=== PATIENT | female | born 1985 | race Caucasian/White ===

== ENCOUNTER → 2018-05-21 | Outpatient (CLI) | payer BC | LOC: FIMAGING 12:07 | PROVIDERS: ATTEND Advanced Practice Midwife | DX: Z34.02 Encounter for supervision of normal first pregnancy, second trimester (principal); Z3A.19 19 weeks gestation of pregnancy ==

== ENCOUNTER 2018-09-30 18:29 | Observation (INO) | payer BC ==
[2018-09-30] MEDS: ACETAMINOPHEN 500 MG TAB PO PRN (19:01)
[2018-09-30 19:02] LABS: PLATELET COUNT 187 10^3/uL (150-400)
[2018-09-30] MEDS ORDERED: SIMETHICONE 80 MG TAB CHEW PO PRN (20:16)
[2018-09-30] MEDS ORDERED: HYDROCORTISONE 0.5% CREAM TP PRN (20:16)
[2018-09-30] MEDS ORDERED: DOCUSATE SODIUM 100 MG CAP PO PRN (20:16)
[2018-09-30] MEDS: FERROUS SULFATE 325 MG TAB PO SCH (21:08)
[2018-09-30] MEDS: IBUPROFEN 600 MG TAB PO PRN (21:08)
--- NOTE | 2018-09-30 21:12 | GHP ---
DATE OF ADMISSION: 09/30/2018 ADMITTING DIAGNOSES: 1. Status post vaginal delivery with delayed hemorrhage at [facility]. 2. Symptomatic anemia. HISTORY OF PRESENT ILLNESS: Patient is a 33-year-old 1, now P1 who was at 38 weeks and 3 days, who presented to [facility] in active labor around 0730 this morning. Pt then pushed for 3 hours, and had a spontaneous vaginal delivery at 1449 today to a viable male infant with delivery of placenta at 1505. The patient had a second-degree laceration that was repaired without difficulty by CNM as well as a high sulcal tear which was difficulty to repair and took two CNMs for the repair. EBL in total was 1300 cc, and noted to be delayed. The patient did have symptoms of being pale, dizzy with hypotension, and tachycardia. Heart rate as high as 115. The patient is being transferred from [facility] to Labor and Delivery for observation of vaginal bleeding, as well as symptoms of anemia. The patient had good care at the [facility]. mostly uncomplicated. She did develop anemia at 27 weeks, is on iron. There was an estimated weight in the 98th percentile at 20 weeks, with no followup ultrasound. The patient declined both Tdap and flu vaccine. GBS culture was negative. PAST OB HISTORY: This was the patient's first . PAST [employer] HISTORY: Age of menarche 12 . Cycles are regular every 28 days for 5- 7 days. Patient denies a history of abnormal Pap smears, or any exposure to STDs. PAST MEDICAL HISTORY: Unremarkable. PAST SURGICAL HISTORY: None. MEDICATIONS: vitamin and Iron. ALLERGIES: Guaifenesin. SOCIAL HISTORY: Patient is and lives with her . She denies any alcohol, tobacco, or illicit drug use currently. FAMILY HISTORY: Maternal grandfather, multiple myeloma. Father, heart disease. REVIEW OF SYSTEMS: 10-point review of systems is negative. Pertinent positives noted in HPI. LABS: labs: Patient is O positive, antibody negative. H and H first- trimester 41.2 and 13.7, platelets 268. RPR nonreactive. HIV nonreactive. Rubella immune. Hepatitis B surface antigen negative. Pap smear: Chlamydia, gonorrhea cultures negative. UA and urine culture negative. Genetic screen, and carrier screen negative. One-hour Glucola 85. Repeat and H and H 3rd trimester, 11 and 33.5, platelets 173. GBS culture was negative. PHYSICAL EXAMINATION: VITAL SIGNS: On admission, vital signs are stable. Patient is afebrile at 37.6, heart rate 94, did get as high as 105, respirations 18, blood pressure 107/67. GENERAL: The patient is a well- nourished, well-developed female. Alert and oriented x3. No apparent distress. NEURO: Grossly intact. SKIN: Warm. There is pallor noted. No rash. CARDIOVASCULAR: Regular rate and rhythm. LUNGS: Clear to auscultation bilaterally. ABDOMEN: Fundus firm below umbilicus, soft, nontender. PELVIC: Minimal lochia noted at this time. Second degree perineal lac and sulcal tear repaired well with no bleeding. EXTREMITIES: Normal to inspection without calf tenderness or edema. ASSESSMENT: Patient is a 33-year-old 1, now para 1, status post a spontaneous vaginal delivery complicated by hemorrhage with symptomatic anemia. PLAN: 1. Admit to Labor and Delivery for observation. 2. Will check HCT now and again in the morning. 3. IV fluids. 4. Will start iron and colace. 5. Continue to monitor vital signs and symptoms; if patient becomes too symptomatic, t/c blood transfusion. 6. If patient continues to have bleeding, will consider vaginal packing. /[id number]/MODL MTDD
[2018-10-01] MEDS: IBUPROFEN 600 MG TAB PO PRN ×3 (03:49→15:35)
[2018-10-01] MEDS: ACETAMINOPHEN 500 MG TAB PO PRN (03:50)
--- NOTE | 2018-10-01 08:14 | OBPP ---
Progress Note Assessment/Plan: Assessment: 33 PPD#1 s/p at Center, c/b pp hemorrhage and deep vaginal sulcus tear - with anemia, currently asymptomatic, minimal bleeding - as anticipated pp. R labial edema / hematoma - stable. Plan: D/C home, routine pp cares, including iron supplementation. Happy to see her in follow up at [facility], but will likely choose FU with the Center midwives. Sherri Junior MD, FACOG [facility] Subjective/ Course: Pt doing well, was able to sleep and rest overnight. Passed a couple large - tennis ball sized clots this morning after being in bed for a long time. When she first got up, was slightly dizzy, but after being up and voiding, no lightheadedness or dizziness. Voiding without difficulty. [employer] diet. going well. 10/01/18 09:25 Objective: 10/01/18 05:30 Patient ABO/Rh O POSITIVE 09/30/18 18:40 Temp Pulse Resp BP Pulse Ox 37.6 C 94 18 107/67 100 09/30/18 18:30 18 18:30 09/30/18 18:30 09/30/18 18:30 09/30/18 18:30 VS at 0935 37.1 93 107/57 gen - pleasant, NAD CV - RRR Chest - CTAB abd - soft, + BS, fundus firm at u-2, NT ext - no calf tenderness, no edema perineum - repair is intact, R labia purplish, tender, and mildly edematous, no active bleeding Uterine Position/Fundal Height: Umbilicus -2 Uterine Tone: Firm
[2018-10-01 09:53] VITALS: BP 107/57
[2018-10-01] MEDS: FERROUS SULFATE 325 MG TAB PO SCH (11:33)
== END 2018-10-01 15:47 | disposition home or self-care (01) ==
LOC: FLD 18:29
PROVIDERS: ADMIT Obstetrics & Gynecology; ATTEND Obstetrics & Gynecology
DX: O72.2 Delayed and secondary postpartum hemorrhage (principal); O99.03 Anemia complicating the puerperium; Z37.0 Single live birth; Z3A.38 38 weeks gestation of pregnancy
CPT/HCPCS: 99241; G0378; G0463